=== PATIENT | male | born 1930 | race Caucasian/White ===

== ENCOUNTER 2017-08-05 09:24 | Emergency (ER) | payer MEDICARE, OTHER ==
[2017-08-05 09:34] VITALS: BP 175/75
[2017-08-05] MEDS ORDERED: cefTRIAXone 1 GM VIAL IM STA (09:46)
[2017-08-05] MEDS ORDERED: LIDOCAINE 1% 2 ML VIAL SUBQ ONE (09:46)
--- NOTE | 2017-08-05 09:50 | ED Physician Documentation ---
History of Present Illness - Stated complaint Stated Complaint: R BIG TOE PX - Chief complaint Chief Complaint: Ext Problem - History obtained from History obtained from: Patient - History of Present Illness Timing: How many days ago (5) Pain level max: 5 Pain level now: 4 Improved by: nothing Worsened by: walking - Additonal information Additional information: R 3rd toe swelling, redness, pain x5 days. Patient states he had an infection to the right third finger as well, this spontaneously drained while he was doing dishes a few weeks ago, has been on Keflex for that. States his doctor obtained a culture, does not know the results. Review of Systems Constitutional: denies: Fever, Chills Cardiac: denies: Chest pain / pressure Respiratory: denies: Cough GI: denies: Vomiting Skin: denies: Rash Musculoskeletal: denies: Neck pain, Back pain Neurologic: denies: Headache PD PAST MEDICAL HISTORY - Past Medical History Past Medical History: Yes Cardiovascular: Hypertension, High cholesterol, Coronary artery disease Endocrine/Autoimmune: Type 2 diabetes GI: GERD Musculoskeletal: Rheumatoid arthritis, Gout - Past Surgical History Past Surgical History: Yes Ortho: Hip replacement, Knee replacement, Spine surgery Cardiovascular: CABG - Present Medications Home Medications: Ambulatory Orders Medication Instructions Recorded Confirmed Aspirin [Aspir-Low] 11/19/15 Carisoprodol 11/19/15 Carvedilol 11/19/15 Clopidogrel [Plavix] 75 mg PO DAILY 11/19/15 11/19/15 Ferrous Sulfate [Iron Supplement] 11/19/15 Glipizide [Glipizide Xl] 11/19/15 HYDROcod/ACETAM 5/325 [[place] 5/325] 1 ea PO Q6H PRN #20 tablet 11/19/15 Hydrochlorothiazide 25 mg 11/19/15 Hydroxychloroquine Sulfate 11/19/15 Lisinopril 11/19/15 Nabumetone 11/19/15 Omeprazole [PriLOSEC] 11/19/15 Rosuvastatin Calcium [Crestor] 11/19/15 Doxycycline Hyclate 100 mg PO BID #20 tablet 08/05/17 - Allergies Allergies/Adverse Reactions: Allergies Allergy/AdvReac Type Severity Reaction Status Date / Time Penicillins Allergy Unknown Verified 11/19/15 08:51 Sulfa (Sulfonamide Allergy Unknown Verified 11/19/15 08:51 Antibiotics) - Social History Does the pt smoke?: No Smoking Status: Never smoker Does the pt have substance abuse?: No - POLST Patient has POLST: No PD ED PE NORMAL - Vitals Vital signs reviewed: Yes - General General: Alert and oriented X 3, No acute distress - Derm Derm: Warm and dry - Extremities Extremities: Other (R 3rd toe - erythema and swelling over the dorsum of the toe. no fluctuance. no drainage. no lymphangitis.) - Neuro Neuro: Alert and oriented X 3 - Psych Psych: Normal mood, Normal affect Results - Vitals Vitals: Vital Signs - 24 hr 08/05/17 09:31 Temperature 36.6 C Heart Rate 64 Respiratory 18 Rate Blood Pressure 175/75 H O2 Saturation 96 Oxygen O2 Source Room air PD MEDICAL DECISION MAKING - ED course Complexity details: reviewed results (BG 190), re-evaluated patient, considered differential, d/w patient ED course: Patient is an 87-year-old gentleman who presents to the emergency department cellulitis of the right third toe, no drainable abscess. No evidence of septic joint. No evidence of osteomyelitis. Given Rocephin intramuscularly and will place on doxycycline for home as he is allergic to penicillin and sulfa. Will follow up closely with his PCP and if he is unable to be seen, he will return here for repeat evaluation. Patient counseled regarding signs and symptoms for which I believe and urgent re-evaluation would be necessary. Patient with good understanding of and agreement to plan and is comfortable going home at this time This document was made in part using voice recognition software. While efforts are made to proofread this document, sound alike and grammatical errors may occur. Departure - Departure Disposition: 01 Home, Self Care Clinical Impression: Cellulitis Qualifiers: Site of cellulitis: extremity Site of cellulitis of extremity: lower extremity Laterality: right Qualified Code(s): L03.115 - Cellulitis of right lower limb Condition: Good Instructions: ED Infec Skin Cellulitis Follow-Up: Hank Lynn MD [Primary Care Provider] - Within 3 Days Prescriptions: Doxycycline Hyclate 100 mg PO BID #20 tablet Comments: Stop your iron pills while on the doxycycline. It is very important that you be seen in 2-3 days for follow-up. Return sooner if you worsen. This should improve over the next 24-48 hours. If you are unable to be seen by your doctor in 2-3 days, return here for recheck. Discharge Date/Time: 08/05/17 10:05
== END 2017-08-05 10:05 | disposition home or self-care (01) ==
LOC: ED 09:24
DX: L03.115 Cellulitis of right lower limb (principal); Z95.1 Presence of aortocoronary bypass graft; Z96.649 Presence of unspecified artificial hip joint; Z96.659 Presence of unspecified artificial knee joint
CPT/HCPCS: 96372; 99283

== ENCOUNTER 2018-12-21 10:26 | Emergency (ER) | payer MEDICARE, OTHER ==
[2018-12-21 10:40] VITALS: BP 196/78
--- NOTE | 2018-12-21 12:49 | ED Physician Documentation ---
History of Present Illness - Stated complaint Stated Complaint: SWOLLEN RT ARM - Chief complaint Chief Complaint: General - History obtained from History obtained from: Patient - Additonal information Additional information: Patient is an 88-year-old male, right-handed presenting with concern for gout flare to right wrist and hand over the past several days. Patient denies particular inciting incident, trauma, or other injury. Patient also denies fever or other signs of infection. Patient denies changes in sensation, but admits to changes in strength and range of motion to right hand because of pain and swelling. Patient takes multiple medications at home as preventative measures. No other improving or worsening factors noted. Review of Systems Constitutional: denies: Fever GI: denies: Vomiting, Diarrhea : denies: Dysuria Musculoskeletal: reports: Extremity pain, Joint pain, Extremity swelling, Joint swelling Neurologic: reports: Focal weakness. denies: Numbness PD PAST MEDICAL HISTORY - Past Medical History Cardiovascular: Hypertension, High cholesterol, Coronary artery disease Endocrine/Autoimmune: Type 2 diabetes GI: GERD Musculoskeletal: Rheumatoid arthritis, Gout - Past Surgical History Past Surgical History: Yes Ortho: Hip replacement, Knee replacement, Spine surgery Cardiovascular: CABG - Present Medications Home Medications: Ambulatory Orders Medication Instructions Recorded Confirmed Aspirin [Aspir-Low] 11/19/15 Carisoprodol 11/19/15 Clopidogrel [Plavix] 75 mg PO DAILY 11/19/15 11/19/15 Ferrous Sulfate [Iron Supplement] 11/19/15 Glipizide [Glipizide Xl] 5 mg ORAL DAILY 11/19/15 Hydrochlorothiazide 25 mg 11/19/15 Hydroxychloroquine Sulfate 11/19/15 Lisinopril 11/19/15 Nabumetone 11/19/15 Omeprazole [PriLOSEC] 11/19/15 Rosuvastatin Calcium [Crestor] 11/19/15 Colchicine 0.6 mg PO TID 7 Days capsule 12/21/18 - Allergies Allergies/Adverse Reactions: Allergies Allergy/AdvReac Type Severity Reaction Status Date / Time Penicillins Allergy Unknown Verified 12/21/18 10:39 Sulfa (Sulfonamide Allergy Unknown Verified 12/21/18 10:39 Antibiotics) - Social History Does the pt smoke?: No Smoking Status: Never smoker Does the pt have substance abuse?: No - POLST Patient has POLST: No PD ED PE NORMAL - Vitals Vital signs reviewed: Yes - General General: Alert and oriented X 3, No acute distress, Well developed/nourished - HEENT HEENT: Atraumatic, Moist mucous membranes - Neck Neck: Supple, no meningeal sign - Cardiac Cardiac: Strong equal pulses - Respiratory Respiratory: No respiratory distress - Derm Derm: Normal color, Warm and dry, No rash - Extremities Extremities: Other (Significant swelling and tenderness to palpation of right wrist and hand diffusely with limited instructional design consultant strength and range of motion otherwise at wrist). No: No deformity, No tenderness to palpate, No edema - Neuro Neuro: Alert and oriented X 3, Other (See above) - Psych Psych: Normal mood, Normal affect Results - Vitals Vitals: Vital Signs - 24 hr 12/21/18 10:37 Temperature 36.4 C L Heart Rate 83 Respiratory 18 Rate Blood Pressure 196/78 H O2 Saturation 98 Oxygen O2 Source Room air PD MEDICAL DECISION MAKING - ED course Complexity details: reviewed old records, considered differential, d/w patient ED course: Patient presenting with concern for recurrence of gout. Patient reports that he has experienced gout in this particular location many times before and takes multiple medications at home for prevention. Patient denies trauma and have low suspicion for bony abnormalities including dislocation or fracture. Do not feel patient requires x-rays at this time. Patient also denies symptoms of infection and do not see changes to indicate cellulitis, abscess, lymphangitis. Discussed options for medications and patient declined steroids. Patient would only be willing to take steroids into the joint and at this time, do not feel an intra-articular steroid injection is appropriate and otherwise not something regularly performed by this physician. Also due to patient's age and comorbidities feel that higher strength NSAIDs such as naproxen or indomethacin are less appropriate than colchicine. Prescribed colchicine and also discussed other supportive cares, return precautions, and follow-up. Patient voiced understanding and is comfortable with discharge plan. Departure - Departure Disposition: 01 Home, Self Care Clinical Impression: Gout Qualifiers: Gout site: wrist Gout etiology: unspecified cause Chronicity: acute Laterality: right Qualified Code(s): M10.9 - Gout, unspecified Condition: Good Instructions: ED Arthritis Gout, ED Diet Gout Follow-Up: Hank Lynn MD [Primary Care Provider] - Within 3 Days Prescriptions: Colchicine 0.6 mg PO TID 7 Days capsule Comments: Please continue home medications as previously instructed. May also consider usage of ibuprofen to help with gout flare, swelling, and pain. Also recommend elevation and ice application. Please use colchicine as instructed to help with gout flare. Follow-up with primary care physician in next 2 to 3 days and return to ED sooner if experience worsening symptoms or have other concerns.
== END 2018-12-21 13:10 | disposition home or self-care (01) ==
LOC: ED 10:26
DX: M10.9 Gout, unspecified (principal); I10 Essential (primary) hypertension; E11.9 Type 2 diabetes mellitus without complications; Z79.84 Long term (current) use of oral hypoglycemic drugs; Z79.82 Long term (current) use of aspirin
CPT/HCPCS: 99282; 99284

== ENCOUNTER 2020-01-09 09:45 | Outpatient (CLI) | payer MEDICARE, OTHER ==
--- NOTE | 2020-01-09 12:09 | XRAY Report ---
PROCEDURE: Knee 3 View LT INDICATIONS: LEFT KNEE LEG PAIN TECHNIQUE: AP and lateral views of the left knee were acquired. COMPARISON: None. 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 The metallic components are intact without signs of loosening. No perihardware fracture is identified. No acute fracture or dislocation . Soft tissues: There is a small joint effusion. Atherosclerotic calcifications are seen in the distal femoral and popliteal arteries. A small amount of hyperdense material is seen projecting over the sup rapatellar recess on lateral view, which may represent calcified intra-articular debris. 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 Small joint effusion with possible calci fied intra-articular debris in the suprapatellar recess. No acute osseous abnormality is seen. Reviewed by: Ludin Garcia MD on 01/09/2020 12:08 PM PDT Approved by: Ludin Garcia MD on 01/09/2020 12:08 PM PDT Station ID: [id number]
--- NOTE | 2020-01-09 12:11 | XRAY Report ---
PROCEDURE: Tib/Fib LT INDICATIONS: LEFT KNEE LEG PAIN TECHNIQUE: 2 views of the tibia and fibula were acquired. COMPARISON: None. 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 The tibia and fibula demonstrate n o acute fracture or malalignment. Soft tissues: Vascular calcifications are noted in the calf. IMPRESSION: No acute osseous abnormality. 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 Reviewed by: Ludin Garcia MD on 01/09/2020 12:10 PM PDT Approved by: Ludin Garcia MD on 01/09/2020 12:10 PM PDT Station ID: [id number]
== END 2020-01-09 09:46 | disposition home or self-care (01) ==
LOC: DI 09:45
PROVIDERS: ATTEND Family Medicine
DX: M25.462 Effusion, left knee (principal); Z96.652 Presence of left artificial knee joint

== ENCOUNTER 2020-05-19 11:33 | Outpatient (CLI) | payer MEDICARE, OTHER ==
--- OUTSIDE RECORDS SUMMARY | 2020-05-26 01:13 | EXTERNAL MEDICAL SUMMARY RPT | Continuity of Care Document ---
:1930 Demographics Phone Unavailable Preferred Language Czech Marital Status Unknown Restorationist Affiliation Unknown Race Unknown Ethnic Group Unknown Author Organization [facility] Address [address] [place] [address] Phone Care Team Providers Name Role Phone Lycksell Unavailable Unavailable Problems date description facility Patient Education [facility] Finding [facility] Ex-smoker (finding) [facility] 2020-05-20 14:56 Pleural effusion, not elsewhere classif ied [facility] All[facility]ies date [facility] SULFA (SULFONAMIDE ANTIBIOTICS) [facility] NO KNOWN ALLERGIES [facility] Medications date description facility 2020-05-19 00:00:00 Allopurinol 300 MG Oral [facility] 2020-05-19 00:00:00 Carisoprodol [address] [facility] 2020-05-19 00:00:00 Colchicine 0.6 MG Oral Tablet [facility] 2020-05-19 00:00:00 Omeprazole 20 MG Enteric Coated [facility] 2020-05-19 00:00:00 carvedilol 25 MG Oral Tablet [facility] 2020-05-19 00:00:00 ferrous sulfate [address] [facility]-05-19 00:00:00 clopidogrel 75 MG Oral [facility] 2020-05-19 00:00:00 nabumetone 750 MG Oral [facility] 2020-05-19 00:00:00 Lisinopril 20 MG Oral Tablet [facility] 2020-05-19 00:00:00 Rosuvastatin calcium 40 MG Oral Tablet [facility] 2020-05-19 00:00:00 Hydroxychloroquine Sulfate 200 MG [facility] Tablet Procedures date description facility 2020-05-19 00:00:00 [facility] date description facility 2020-05-19 00:00:00 [facility] date description facility 2020-05-19 00:00:00 [facility] date description facility 2020-05-19 00:00:00 [facility] date description facility 2020-05-19 00:00:00 [facility] date description facility 2020-05-19 00:00:00 [facility] date description facility 2020-05-19 00:00:00 [facility] date description facility 2020-05-19 00:00:00 [facility] date description facility 2020-05-19 00:00:00 [facility] date description facility 2020-05-20 00:00:00 Diagnosis [facility] date description facility 2020-05-20 00:00:00 [facility] date description facility 2020-05-20 00:00:00 [facility] date description facility 2020-05-20 00:00:00 [facility] date description facility 2020-05-20 00:00:00 [facility] date description facility 2020-05-20 00:00:00 [facility] date description facility 2020-05-20 00:00:00 [facility] date description facility 2020-05-20 00:00:00 [facility] date description facility 2020-05-20 00:00:00 Finding [facility] date description facility 2020-05-20 00:00:00 [facility] date description facility 2020-05-20 00:00:00 [facility] date description facility 2020-05-20 00:00:00 [facility] date description facility 2020-05-20 00:00:00 [facility] date description facility 2020-05-22 00:00:00 [facility] date description facility 2020-05-25 00:00:00 [facility] date description facility 2020-05-25 00:00:00 [facility] Results Social History date description facility [phone] Ex-smoker (finding) [facility] Social History date description facility [phone] Ex-smoker (finding) [facility] date description facility [phone]
== END 2020-05-19 11:34 | disposition short-term general hospital (02) ==
LOC: EMS 11:33
PROVIDERS: ATTEND Surgery
DX: R06.02 Shortness of breath (principal)
CPT/HCPCS: A0425; A0427